=== PATIENT | female | born 1990 | race Caucasian/White ===

== ENCOUNTER 2016-09-10 16:37 | Emergency (ER) | payer OTHER ==
[~2016-09-10] VITALS: Wt 50.0 kg
[2016-09-10] MEDS ORDERED: IBUPROFEN 200 MG TAB PO ONE (17:30)
--- NOTE | 2016-09-10 17:32 | RADRPT ---
PROCEDURE: XR Wrist. CLINICAL INDICATION: Trauma, pain TECHNIQUE: AP, lateral and oblique views of the left wrist were performed. COMPARISON: No prior studies are available for comparison. FINDINGS: No evidence of fracture, dislocation, or subluxation is seen. The bones appear well mineralized. The joint spaces are well preserved. The soft tissues appear intact. IMPRESSION: Unremarkable exam of the left wrist. No visualized fracture or dislocation. RPTAT: DD .Joseph Borrero MD, MD Date Time Electronically viewed and signed by .Joseph Borrero MD, on 09/10/2016 17:32 .T/
[2016-09-10] MEDS ORDERED: IBUP400T22 PO (17:35)
--- NOTE | 2016-09-10 17:37 | ERD ---
ER Documentation Chief Complaint Date/Time DATE: 09/10/16 TIME: 17:36 Chief Complaint L WRIST PAIN FROM A FALL TODAY. NO DEFORMITY NOTED. HPI This 25-year-old female complains of left wrist pain after fall on outstretched hand today. She has restricted range of motion weakness. The pain is primarily the dorsum of her left wrist joint. She denies any bleeding or lacerations, or history of elbow, shoulder, head injury or neck pain. ROS All systems reviewed and are negative except as per history of present illness. Medications Home Meds Active Scripts Ibuprofen* (Motrin*) 400 Mg Tab, 400 MG PO Q6, #16 TAB Prov:MARKIE JUAREZ MD 09/10/16 PMhx/Soc Medical and Surgical Hx: pt denies Medical Hx, pt denies Surgical Hx Physical Exam Vitals Vital Signs Date Time Temp Pulse Resp B/P Pulse Ox O2 Delivery O2 Flow Rate FiO2 09/10/16 16:48 98.0 63 20 118/77 98 Physical Exam Const: [] Alert, not ill-appearing. Head: Atraumatic Eyes: Normal Conjunctiva ENT: Normal External Ears, Nose and Mouth. Neck: Full range of motion..~ No meningismus. Resp: Clear to auscultation bilaterally Cardio: Regular rate and rhythm, no murmurs Abd: Soft, non tender, non distended. Normal bowel sounds Skin: No petechiae or rashes Back: No midline or flank tenderness Ext: No cyanosis, or edema. Some tenderness in the dorsum of left wrist joint. There is no snuffbox tenderness. There is no deformities, restricted range of motion weakness or effusion or warmth erythema. Neur: Awake and alert Psych: Normal Mood and Affect Results 24 hrs Current Medications Medications (Trade) Dose Ordered Sig/Mark Route PRN Reason Start Time Stop Time Status Last Admin Dose Admin Ibuprofen (Motrin) 400 mg ONCE ONCE PO 09/10/16 17:30 09/10/16 17:31 DC Procedures/MDM X-ray left wrist 3V Interpreted by me: Scaphoid: [Normal] Bones: [No fracture] Joints: [No dislocation] Foreign body: [None]. Impression-normal left wrist x-ray Patient signs and symptoms of left wrist sprain without evidence of fracture, dislocation, ischemia, deficits, infection. She was placed in the left wrist Velcro brace. Splint Assessment: Neurovascularly intact post splint placement with good fit. Patient will be discharged home with prescription of ibuprofen instructions for ice. She should see her primary doctor possible orthopedist for pain next week otherwise for sooner for redness, fevers, new worsening symptoms Departure Diagnosis: Primary Impression: Wrist injury Encounter type: initial encounter Laterality: left Qualified Code: S69.92XA - Wrist injury, left, initial encounter Condition: Stable Patient Instructions: Wrist Sprain Additional Instructions: X-ray read as normal. See primary doctor orthopedist for pain next week. Recommend ice at home. Recheck sooner for fevers, redness, new symptoms MARKIE JUAREZ MD Sep 10, 2016 17:37
== END 2016-09-10 18:13 | disposition home or self-care (01) ==
LOC: FTE 16:37
DX: S69.92XA Unspecified injury of left wrist, hand and finger(s), initial encounter (principal); W18.39XA Other fall on same level, initial encounter; Y92.9 Unspecified place or not applicable
CPT/HCPCS: 29125; 73110; Z7502; Z7610

== ENCOUNTER 2016-10-16 20:58 | Emergency (ER) | payer OTHER ==
[~2016-10-16] VITALS: Ht 165.1 cm; Wt 52.0 kg
[~2016-10-16 20:58] MED LIST: IBUP400T22 PO
[2016-10-16 21:05] VITALS: Ht 165.1 cm; Wt 52.0 kg
[2016-10-16 23:04] LABS: ADD UMIC NO; URINE BILIRUBIN (Dip) NEGATIVE (NEGATIVE); URINE BLOOD (Dip) NEGATIVE (NEGATIVE); URINE COLOR LT. YELLOW (YELLOW); URINE GLUCOSE (Dip) NEGATIVE (NEGATIVE); URINE KETONES (Dip) NEGATIVE (NEGATIVE); URINE LEUKOCYTE ESTERASE (Dip) NEGATIVE (NEGATIVE); URINE NITRITE (Dip) NEGATIVE (NEGATIVE); URINE TOTAL PROTEIN (Dip) NEGATIVE (NEGATIVE); URINE UROBILINOGEN (Dip) 0.2 E.U./dL (0.1-1.0)
[2016-10-17] MEDS ORDERED: RANI150T9 PO (00:11)
--- NOTE | 2016-10-17 00:22 | ERA ---
ER Documentation Chief Complaint Date/Time DATE: 10/17/16 TIME: 00:21 Chief Complaint Nausea and blood in the stool HPI Patient presents with a chief complaint of rectal bleeding 1 week. The amount of blood is described as minimal/trace. Patient also complains of hematuria. Patient denies any pain, melena, abdominal pain, flank pain, dysuria. There are no other associated manifestations reported. ROS All systems reviewed and are negative except as per history of present illness. Medications Home Meds Active Scripts Ibuprofen* (Motrin*) 400 Mg Tab, 400 MG PO Q6, #16 TAB Prov:MARKIE JUAREZ MD 09/10/16 Discontinued Scripts Ranitidine Hcl* (Zantac*) 150 Mg Tablet, 150 MG PO BID Y for EPIGASTRIC PAIN, # 30 TAB Prov:ANANDA PERES PA-C 10/17/16 Allergies Allergies: Uncoded Allergies: SULFA (Allergy, Intermediate, RASH, 10/16/16) PMhx/Soc Medical and Surgical Hx: pt denies Medical Hx, pt denies Surgical Hx History of Surgery: No (DENIES MEDICAL AND SURGICAL HX.) Hx Alcohol Use: No Hx Substance Use: No Hx Tobacco Use: Yes (E-CIGGARETES) Smoking Status: Current every day smoker Physical Exam Vitals Vital Signs Date Time Temp Pulse Resp B/P Pulse Ox O2 Delivery O2 Flow Rate FiO2 10/16/16 21:05 98.0 86 20 122/79 98 Physical Exam Const: Well-appearing well-developed 25-year-old female. Well-appearing able to smile after a ground. Head: Atraumatic Eyes: Normal Conjunctiva ENT: Normal External Ears, Nose and Mouth. Neck: Full range of motion..~ No meningismus. Resp: Clear to auscultation bilaterally Cardio: Regular rate and rhythm, no murmurs Abd: Soft, non tender, non distended. Normal bowel sounds. No McBurney's point tenderness. Skin: No petechiae or rashes Back: No midline or flank tenderness Ext: No cyanosis, or edema Neur: Awake and alert Psych: Normal Mood and Affect Results 24 hrs Laboratory Tests Test 10/16/16 22:56 Urine Color LT. YELLOW Urine Clarity CLEAR Urine pH 6.0 Urine Specific [place] <=1.005 Urine Ketones NEGATIVE Urine Nitrite NEGATIVE Urine Bilirubin NEGATIVE Urine Urobilinogen 0.2 E.U./dL Urine Leukocyte Esterase NEGATIVE Urine Hemoglobin NEGATIVE Urine Glucose NEGATIVE% Urine Total Protein NEGATIVE Procedures/MDM Patient worked up for hematuria. Urinalysis was unremarkable. Patient's vitals are stable and is well-appearing. At this time I have little suspicion for pyelonephritis, urinary tract infection, gastroenteritis, inflammatory bowel disease, or invasive infectious diarrhea. I have presented this case to my attending Dr. Gasca and he agrees with my assessment and plan. Patient is stable and is ready for discharge at this time. Be discharged with instructions with return precautions. Departure Diagnosis: Primary Impression: Rectal bleed Condition: Stable Patient Instructions: Rectal Bleed, Stable Additional Instructions: Follow up with your PCP within the next 1-3 days for a more thorough evaluation and a possible referral to a specialist. Return the the emergency department immediately if symptoms worsen or change. If you have any questions regarding medications, ask your pharmacist or us before you leave. If any adverse reactions occur while taking your medications, discontinue the treatment and return to the emergency department immediately. Take your medications as directed, and complete the entire course of treatment. ANANDA PERES PA-C October 17, 2016 00:22
== END 2016-10-17 00:29 | disposition home or self-care (01) ==
LOC: FTE 20:58
DX: K62.5 Hemorrhage of anus and rectum (principal); F17.210 Nicotine dependence, cigarettes, uncomplicated
CPT/HCPCS: 81003; Z7502; 99283